=== PATIENT | male | born 1990 | race Caucasian/White ===

== ENCOUNTER 2017-06-16 13:51 | Emergency (ER) | payer OTHER ==
[~2017-06-16] VITALS: Ht 180.3 cm; Wt 85.5 kg
[2017-06-16 13:54] VITALS: Ht 180.3 cm; Wt 85.5 kg
[2017-06-16] MEDS ORDERED: HYDROCODONE/APAP (5/325) TAB PO ONE (16:30)
[2017-06-16] MEDS ORDERED: IBUPROFEN 600 MG TAB PO ONE (16:30)
[2017-06-16] MEDS ORDERED: LIDOCAINE 2%/EPI MPF (SDV) 20 ML VIAL INJ ONE (16:30)
--- NOTE | 2017-06-16 16:40 | RADRPT ---
PROCEDURE: XR Ankle 3 Views. CLINICAL INDICATION: Left ankle pain and trauma. TECHNIQUE: AP, oblique and lateral views of the left ankle were performed. COMPARISON: None. FINDINGS: The osseous structures are intact. No destructive bony lesions are observed. Interosseous spaces a ppear normal. Soft tissue swelling is seen over the lateral malleolus. IMPRESSION: Soft tissue swelling over the lateral malleolus. Ligamentous and tendinous injury is not excluded. If characterization of the ligaments and tendons is needed MRI is recommended. If there is high clinical suspicion for bony traumatic injury, further evaluation with CT should be considered. RPTAT: AA .Deshaun Hackett MD, MD Date Time Electronically viewed and signed by .Deshaun Hackett MD, on 06/16/2017 16:39 .P/
[2017-06-16] MEDS ORDERED: CEPH-443 PO (16:58)
[2017-06-16] MEDS ORDERED: NAPR-688 PO (16:58)
[2017-06-16 17:32] VITALS: BP 118/78; PULSE 80; RESP 18; TEMP 98.1
--- NOTE | 2017-06-16 17:43 | ERD ---
ER Documentation Chief Complaint Date/Time DATE: 06/16/17 TIME: 17:35 Chief Complaint Complains of knee pain after a slip and fall HPI This 27-year-old male presents for a slip and fall that he had yesterday in which he scraped his knee but injured his ankle and is worried about his ankle swelling. He also had a scrape on the bottom of his chin and is been bleeding since. No head injury no loss of consciousness no other injuries is otherwise healthy. ROS All systems reviewed and are negative except as per history of present illness. Medications Home Meds Active Scripts Naproxen* (Naproxen*) 500 Mg Tablet, 500 MG PO BID Y for hardik, #20 TAB Prov:BRITTANY KHAN DO 06/16/17 Cephalexin* (Keflex*) 500 Mg Capsule, 500 MG PO TID for 5 Days, CAP Prov:BRITTANY KHAN DO 06/16/17 Allergies Allergies: Coded Allergies: No Known Allergy (Unverified , 06/16/17) PMhx/Soc Medical and Surgical Hx: pt denies Medical Hx, pt denies Surgical Hx Physical Exam Vitals Vital Signs Date Time Temp Pulse Resp B/P Pulse Ox O2 Delivery O2 Flow Rate FiO2 06/16/17 17:32 98.1 80 18 118/78 98 Room Air 06/16/17 13:54 108 20 128/84 98 Physical Exam Const: [] No distress Head: Atraumatic Eyes: Normal Conjunctiva ENT: Normal External Ears, Nose and Mouth. Chin with gaping laceration aproximately 2x3 cm. Scant bleeding and serous drainage. Ext: Left ankle with swelling mostly laterally and tenderness below the lateral malleolus. No deformities otherwise. No foot bone tenderness. Knee has an abrasion across the frontal inferior portion of the patella however the patient has no bony tenderness is able to flex and extend the knee without pain. Distal pulses intact Neur: Awake and alert x O x 3, no deficits Results 24 hrs Current Medications Medications (Trade) Dose Ordered Sig/Xochitl Route PRN Reason Start Time Stop Time Status Last Admin Dose Admin Lidocaine/ Epinephrine (Xylocaine 2%/ Epi Mpf(Sdv)) 20 ml ONCE ONCE INJ 06/16/17 16:30 06/16/17 16:31 DC Acetaminophen/ Hydrocodone Bitart (Conesus (5/325)) 1 tab ONCE ONCE PO 06/16/17 16:30 06/16/17 16:31 DC 06/16/17 16:44 Ibuprofen (Motrin) 600 mg ONCE ONCE PO 06/16/17 16:30 06/16/17 16:31 DC 06/16/17 16:45 Procedures/MDM Left ankle sprain and old gaping chin laceration. X-ray shows no osseous abnormalities. G laceration of the old was gaping and still oozing serosanguineous fluid and some blood. Needed to be close somewhat. I did put 2 sutures in it to approximated somewhat prevent infection and gaping wound. Patient was given an Musa wrap and at his request was also given crutches. He was treated with Conesus and naproxen for his pain. I am going to discharge him with naproxen and Keflex to prevent any infection from his old laceration. Laceration repair note: 9 giving laceration underneath the chin approximately 2 x 3 cm. Area was cleaned and irrigated with sterile saline. Anesthetized with 2 cc of lidocaine with epinephrine. Laceration was partially closed with 2 simple interrupted 5-0 Prolene sutures. Hemostasis was achieved and there was good partial closure. Patient taught the procedure with no complications Left ankle x-ray interpretation: See soft tissue swelling without fracture dislocation. No foreign bodies per Departure Diagnosis: Primary Impression: Chin laceration Additional Impression: Left ankle sprain Condition: Stable Patient Instructions: Treating Ankle Sprains, Laceration, Chin, Suture Or Tape Referrals: [facility] YOU HAVE RECEIVED A MEDICAL SCREENING EXAM AND THE RESULTS INDICATE THAT YOU DO NOT HAVE A CONDITION THAT REQUIRES URGENT TREATMENT IN THE EMERGENCY DEPARTMENT. FURTHER EVALUATION AND TREATMENT OF YOUR CONDITION CAN WAIT UNTIL YOU ARE SEEN IN YOUR DOCTORS OFFICE WITHIN THE NEXT 1-2 DAYS. IT IS YOUR RESPONSIBILITY TO MAKE AN APPOINTMENT FOR FOL-UP CARE. IF YOU HAVE A PRIMARY DOCTOR --you should call your primary doctor and schedule an appointment IF YOU DO NOT HAVE A PRIMARY DOCTOR YOU CAN CALL OUR PHYSICIAN REFERRAL HOTLINE AT IF YOU CAN NOT AFFORD TO SEE A PHYSICIAN YOU CAN CHOSE FROM THE FOLLOWING [facility] [address] [facility] [address] [facility] [address] [facility] [address] [facility]. [facility] [address]. [facility]. [address] Additional Instructions: Call your primary care doctor TOMORROW for an appointment during the next 2-3 days.See the doctor sooner or return here if your condition worsens before your appointment time. BRITTANY KHAN DO Jun 16, 2017 17:43
== END 2017-06-16 17:33 | disposition home or self-care (01) ==
LOC: FTE 13:51
DX: S01.81XA Laceration without foreign body of other part of head, initial encounter (principal); S93.402A Sprain of unspecified ligament of left ankle, initial encounter; W01.0XXA Fall on same level from slipping, tripping and stumbling without subsequent striking against object, initial encounter; Y92.9 Unspecified place or not applicable
CPT/HCPCS: 12011; 73610; Z7502; Z7610